=== PATIENT | female | born 1985 | race Caucasian/White ===

== ENCOUNTER 2017-03-30 16:31 | Emergency (ER) | payer SELFPAY ==
[2017-03-30 18:35] LABS: BASOPHIL % 0.4 % (0-2); PLATELET COUNT 397 x10^3mcL (130-400); RED CELL DISTRIBUTION WIDTH 14.3 % (11.5-14.5)
[2017-03-30 18:43] LABS: CALCIUM 9.1 mg/dL (8.5-10.1); CARBON DIOXIDE 28.3 mmol/L (21-32); CHLORIDE SERUM 102 mmol/L (98-107); CREATININE SERUM 0.7 mg/dL (0.6-1.0); GFR1 > 60 mL/min; GLUCOSE SERUM 84 mg/dL (74-106); POTASSIUM SERUM 3.7 mmol/L (3.5-5.1); SODIUM SERUM 137 mmol/L (136-145)
[2017-03-30 18:47] LABS: ALBUMIN 3.9 g/dL (3.4-5.0); ALKALINE PHOSPHATASE 86 U/L (46-116); ALT/SGPT 45 U/L (14-59); AST/SGOT 28 U/L (15-37); BILIRUBIN TOTAL 0.31 mg/dL (0.20-1.00)
[2017-03-30 18:49] LABS: TOTAL PROTEIN, SERUM 8.6 g/dL (6.4-8.2)
[2017-03-30 19:20] VITALS: BP 159/88
== END 2017-03-30 19:20 | disposition home or self-care (01) ==
LOC: ED 16:31
PROVIDERS: Emergency Medicine
DX: R07.89 Other chest pain (principal); I10 Essential (primary) hypertension
CPT/HCPCS: 36415; 83880; J0780; J1885; Q0092

== ENCOUNTER 2018-08-30 23:15 | Emergency (ER) | payer OTHER ==
[~2018-08-30] VITALS: Ht 162.6 cm; Wt 124.7 kg
[2018-08-30 23:30] VITALS: Ht 162.6 cm; Wt 124.7 kg
[2018-08-31 02:06] VITALS: BP 118/69
== END 2018-08-31 02:06 | disposition home or self-care (01) ==
LOC: ED 23:15
DX: J11.1 Influenza due to unidentified influenza virus with other respiratory manifestations (principal); I10 Essential (primary) hypertension; Z88.8 Allergy status to other drugs, medicaments and biological substances
CPT/HCPCS: J1885; Q0092

== ENCOUNTER 2019-04-07 02:44 | Emergency (ER) | payer MEDICAID ==
[~2019-04-07] VITALS: Ht 160 cm; Wt 125.6 kg
[2019-04-07 02:50] VITALS: Ht 160 cm; Wt 125.6 kg
[2019-04-07 06:04] VITALS: BP 115/95
== END 2019-04-07 06:04 | disposition home or self-care (01) ==
LOC: ED 02:44
DX: J18.9 Pneumonia, unspecified organism (principal); I10 Essential (primary) hypertension; Z88.1 Allergy status to other antibiotic agents
CPT/HCPCS: 87804; J0696; Q0092

== ENCOUNTER 2019-05-05 23:12 | Emergency (ER) | payer MEDICAID ==
[~2019-05-05] VITALS: Ht 160 cm; Wt 123.4 kg
[2019-05-05 23:16] VITALS: Ht 160 cm; Wt 123.4 kg
[2019-05-06 01:08] LABS: UA SPECIFIC GRAVITY >=1.030 (1.005-1.035); microscopic required? YES; urine erythrocyte TRACE (NEGATIVE)
[2019-05-06 04:21] VITALS: BP 141/98
== END 2019-05-06 04:21 | disposition home or self-care (01) ==
LOC: ED 23:12
PROVIDERS: Emergency Medicine
DX: R19.7 Diarrhea, unspecified (principal); G89.29 Other chronic pain; R10.30 Lower abdominal pain, unspecified; I10 Essential (primary) hypertension; Z88.8 Allergy status to other drugs, medicaments and biological substances
CPT/HCPCS: J1885